=== PATIENT | male | born 1985 | race American Indian/Alaskan Native ===

== ENCOUNTER 2021-02-10 13:19 | Emergency (ER) | payer OTHER ==
--- NOTE | 2021-02-10 14:28 | Emergency Department Report ---
<JARRETT LANCE S - Last Filed: 02/10/21 17:58> ED General Adult HPI - General Chief complaint: Fall Stated complaint: L SHOULDER INJURY Time Seen by Provider: 02/10/21 14:20 - Related Data Previous Rx's Medication Instructions Recorded Last Taken Type Naproxen 500 mg PO BID #20 tablet 02/10/21 Unknown Rx Allergies Allergy/AdvReac Type Severity Reaction Status Date / Time No Known Allergies Allergy Unverified 02/10/21 14:21 ED Past Medical Hx - Medications Home Medications: Home Medications Medication Instructions Recorded Confirmed Last Taken Type Naproxen 500 mg PO BID #20 tablet 02/10/21 Unknown Rx - Moderate Sedation Indications: fracture/dislocation redu ASA Class: I Mallampati Airway Score: 1 Preparation: hall monitor applied, pulse oximeter, capnometry used, supplemental O2 applied, suction/airway equipment at bedside, IV secured Ketamine: IV Ketamine Dose: 40 IV Propofol Dose (mgs): 60 Complications: none Patient Tolerated Procedure: well ED Medical Decision Making - Medical Decision Making I saw this patient in conjunction with the Yumiko SEGOVIA, and I was at bedside to do moderate sedation and supervised the shoulder dislocation reduction. This [id number] patient presented with a posterior left shoulder dislocation. He was neurovascularly intact both before and after the procedure. The postreduction x-ray, to me, appears consistent with a reduction as there is no longer the "lightbulb sign" and the humeral head appears appropriately within the glenohumeral joint. Radiology also agrees that it appears appropriately reduced. The patient was once again neurovascularly intact and was placed in a shoulder immobilizer. We monitored him for about 1 an hour after the moderate sedation and the patient returned back to a normal mentation. He was seen ambulatory and both appears and feels stable. The patient says that his shoulder pain has almost completely resolved and he just has a soreness that is most likely consistent with the previous dislocation and the reduction technique. He has been given outpatient referrals for an orthopedist. He will return to the emergency department with any worsening of his symptoms or with any acute distress. Critical Care Time: No ED Disposition Clinical Impression: Posterior dislocation of left shoulder joint Qualifiers: Encounter type: initial encounter Qualified Code(s): S43.022A - Posterior subluxation of left humerus, initial encounter Disposition: TO HOME OR SELFCARE Is pt being admited?: No Condition: Stable Instructions: Shoulder Dislocation, Moderate Conscious Sedation, Adult Additional Instructions: Take Tylenol every 4 hours as needed for pain. Take Naproxen twice daily with food as needed for pain. Wear shoulder immobilizer as directed. Follow up with Dr. Guido, orthopedics, this week. Call Friday to schedule an appointment. Return to the emergency department immediately for new or worsening symptoms. Specifically, return to the emergency department immediately for increased pain, loss of sensation, skin color changes, or any other concerns. Prescriptions: Naproxen 500 mg PO BID #20 tablet Referrals: ANGELA GUIDO MD [Staff Physician] - 3-5 Days Forms: Work/School Release Form(ED) <NANDOYUMIKO BOOTHE - Last Filed: 02/10/21 21:12> ED General Adult HPI - General Source: patient Mode of arrival: Ambulatory Limitations: No Limitations - History of Present Illness Initial comments: 35 y/o left hand dominant male pt presents to ED w/ complaints of traumatic left shoulder pain starting today. Pt states he was working in his backyard when he sustained a mechanical fall from ground level, landing backwards onto his left shoulder. No head injury or LOC. No history of prior injuries to the left shoulder. Denies headache, neck pain, elbow pain, wrist pain, hand pain, paresthesias, skin color changes. Denies all other complaints at this time. ED Review of Systems ROS: Stated complaint: L SHOULDER INJURY Other details as noted in HPI Other: CARDIOVASCULAR: Negative for chest pain. PULMONARY: Negative for dyspnea. GASTROINTESTINAL: Negative for abdominal pain. MUSCULOSKELETAL: Positive for left shoulder pain. NEUROLOGICAL: Negative for headache. INTEGUMENTARY: Negative for ecchymosis. ED Physical Exam - General Limitations: No Limitations - Other Other exam information: General: Awake, appropriately interactive, no acute distress. Neck: Supple. Full range of motion intact. Cardiovascular: Normal peripheral perfusion. Pulmonary: No respiratory distress. Patient is speaking normally without use of accessory muscles. Skin: No apparent rashes or lesions. Neurological: No facial asymmetry. Speech is clear. Follows commands. Patient is alert and oriented. Musculoskeletal: Tenderness to palpation throughout the left shoulder with limited range of motion in all directions secondary to pain. No obvious deformity, although patient is holding the left shoulder in an internally rotated and flexed position. Distal neurovascular motor/sensory function is intact. Psych: Cooperative. Appropriate mood and affect. ED Course Vital Signs 02/10/21 02/10/21 02/10/21 14:26 16:01 16:07 Temperature 99.4 F Temperature [ Post-Procedure] Temperature [ 98 F Pre-Procedure] Pulse Rate 97 H Pulse Rate [ 82 Intra-Procedure ] Pulse Rate [ Post-Procedure] Pulse Rate [Pre 88 -Procedure] Respiratory 20 Rate Respiratory 16 Rate [Intra- Procedure] Respiratory Rate [Post- Procedure] Respiratory Rate [Pre- Procedure] Blood Pressure 164/89 [Intra- Procedure] Blood Pressure [Post-Procedure ] Blood Pressure 152/83 [Pre-Procedure] Blood Pressure 163/97 [Right] O2 Sat by Pulse 100 Oximetry O2 Sat by Pulse 96 Oximetry [ Intra-Procedure ] O2 Sat by Pulse Oximetry [Post -Procedure] 02/10/21 02/10/21 02/10/21 16:16 16:48 16:59 Temperature Temperature [ 98 F Post-Procedure] Temperature [ Pre-Procedure] Pulse Rate Pulse Rate [ 92 H Intra-Procedure ] Pulse Rate [ 93 H Post-Procedure] Pulse Rate [Pre 87 -Procedure] Respiratory Rate Respiratory 16 Rate [Intra- Procedure] Respiratory 16 Rate [Post- Procedure] Respiratory 16 Rate [Pre- Procedure] Blood Pressure 149/80 [Intra- Procedure] Blood Pressure 153/75 [Post-Procedure ] Blood Pressure 153/75 [Pre-Procedure] Blood Pressure [Right] O2 Sat by Pulse Oximetry O2 Sat by Pulse 99 Oximetry [ Intra-Procedure ] O2 Sat by Pulse 100 Oximetry [Post -Procedure] - Orthopedic Joint Reduction Joint #1 Consent Obtained: verbal consent, written consent Time Out Performed: Yes Side: left Joint Reduction Location: shoulder Analgesia: moderate sedation Shoulder Technique Used (if applicable): traction/counter-traction Post-Reduction Neuro Exam: intact Post-Reduction Vascular Exam: intact Post Reduction X-Ray Obtained: Yes Post Reduction X-Ray Results: reduced Splint Applied: Yes (shoulder immobilizer) Patient Tolerated Procedure: well ED Medical Decision Making - Radiology Data [facility] [address] [place] [address] XRay Report Signed Patient: MELITON ABDI MR#: [id number] : 1985 Acct:[id number] Age/Sex: 35 / M ADM Date: 02/10/21 Loc: ED Attending Dr: Ordering Physician: JULIETTE LUIS Date of Service: 02/10/21 Procedure(s): XR shoulder 2+V LT Accession Number(s): [id number] cc: JULIETTE LUIS Fluoro Time In Minutes: LEFT SHOULDER 3 VIEWS INDICATION / CLINICAL INFORMATION: Left shoulder injury after fall. COMPARISON: None available. FINDINGS: BONES and JOINT(S): The glenohumeral joint is dislocated posteriorly. No acute fracture is seen. No significant arthritis. SOFT TISSUES: No significant abnormality. ADDITIONAL FINDINGS: None. IMPRESSION: Posterior dislocation of the left shoulder. Postreduction radiographs are recommended. Signer Name: Fausto Lynch MD Signed: 02/10/2021 3:04 PM Workstation Name: [id number] Transcribed By: RAYO Dictated By: Fausto Lynch MD Electronically Authenticated By: Fausto Lynch MD Signed Date/Time: 02/10/21 1504 DD/ 1503 TD/TT: [address] [address] XRay Report Signed Patient: MELITON ABDI MR#: [id number] : 1985 Acct:[id number] Age/Sex: 35 / M ADM Date: 02/10/21 Loc: ED Attending Dr: Ordering Physician: JARRETT LANCE DO Date of Service: 02/10/21 Procedure(s): XR shoulder 2+V LT Accession Number(s): [id number] cc: JARRETT LANCE DO Fluoro Time In Minutes: JOSE SHOULDER 2 VIEWS 1607 INDICATION: post reduction COMPARISON: 1434 FINDINGS: AP view in external rotation and a low detail attempted Y scapular view were obtained. Evaluation of the wire scattered view is difficult but I believe the dislocation has been reduced. Signer Name: Doc Montez MD Signed: 02/10/2021 4:48 PM Workstation Name: [id number] Transcribed By: ARIA Dictated By: Doc Montez MD Electronically Authenticated By: Doc Montez MD Signed Date/Time: 02/10/218 DD/ 1646 TD/TT: - Medical Decision Making Differential diagnosis including but not limited to: sprain, strain, fracture, contusion, dislocation, rotator cuff injury On evaluation, patient remains stable. Repeat neurovascular exam remains intact. X-rays consistent with posterior shoulder dislocation. Reduced under moderate sedation without complications, attending emergency physician present throughout duration of procedure. Patient tolerated well without complications. See procedure note and attending physician documentation for further details. Patient was placed in a shoulder immobilizer and discharged home to follow-up with orthopedics. Patient expressed understanding and is agreeable to plan of care. Strict return precautions provided. Repeat exam is unremarkable and benign. History, exam, diagnostic testing, and current condition do not suggest worrisome pathology to warrant further testing, continued ED treatment, admission, or surgical evaluation at this point. Given the low probability of a significant medical illness, it would be more likely to result in harm than benefit to perform further testing at this stage. Discussed findings, presumptive diagnosis, need for follow-up and specific signs/symptoms that should prompt immediate return to the emergency department. Instructions were explained in detail to the patient in addition to giving written discharge information. Patient expressed understanding and was given the opportunity to ask questions, all of which were satisfactorily answered prior to discharge home. Critical care attestation.: If time is entered above; I have spent that time in minutes in the direct care of this critically ill patient, excluding procedure time. ED Disposition Is pt being admited?: No Does the pt Need Aspirin: No Time of Disposition: 17:07
--- NOTE | 2021-02-10 15:09 | XRay Report ---
LEFT SHOULDER 3 VIEWS INDICATION / CLINICAL INFORMATION: Left shoulder injury after fall. COMPARISON: None available. FINDINGS: BONES and JOINT(S): The glenohumeral joint is dislocated posteriorly. No acute fracture is seen. No s ignificant arthritis. SOFT TISSUES: No significant abnormality. ADDITIONAL FINDINGS: None. IMPRESSION: Posterior dislocation of the left shoulder. Postreduction radiographs are recommended. Signer Name: Fausto Lynch MD Signed: 02/10/2021 3:04 PM Workstation Name: [id number]
[2021-02-10] MEDS ORDERED: SODIUM CHLORIDE 0.9% 1000 ML 1,000 ML IV ONE (15:38)
[2021-02-10] MEDS ORDERED: propofoL 200 MG/20 ML VIAL IV ONE (15:38)
[2021-02-10] MEDS ORDERED: KETAMINE 500 MG/5 ML VIAL MDV IV ONE (15:38)
[2021-02-10 16:49] VITALS: BP 153/75
--- NOTE | 2021-02-10 16:52 | XRay Report ---
JOSE SHOULDER 2 VIEWS 1607 INDICATION: post reduction COMPARISON: 1434 FINDINGS: AP view in external rotation and a low detail attempted Y scapular view were obtained. Eval uation of the wire scattered view is difficult but I believe the dislocation has been reduced. Signer Name: Doc Montez MD Signed: 02/10/2021 4:48 PM Workstation Name: [id number]
== END 2021-02-10 18:11 | disposition home or self-care (01) ==
LOC: ED 13:19
DX: S43.085A Other dislocation of left shoulder joint, initial encounter (principal); Z79.899 Other long term (current) drug therapy; W18.30XA Fall on same level, unspecified, initial encounter; Y93.89 Activity, other specified; Y92.89 Other specified places as the place of occurrence of the external cause; Y99.8 Other external cause status
CPT/HCPCS: 23650; 73030; 99284; J2704; J7030